=== PATIENT | male | born 1975 | race African-American/Black ===

== ENCOUNTER 2021-05-29 16:16 | Emergency (ER) | payer OTHER ==
[~2021-05-29] VITALS: Ht 180.3 cm; Wt 78.0 kg
[2021-05-29] MEDS ORDERED: INSULIN REGULAR (HUMULIN R) 300UNITS/3ML VIAL IV ONE (16:30)
[2021-05-29] MEDS ORDERED: SODIUM CHLORIDE 0.9% 1,000 ML IV ONE (16:30)
[2021-05-29 17:11] LABS: HEMATOCRIT. 26.3 % (42.0-52.0); HEMOGLOBIN. 9.7 g/dL (14.0-18.0); MEAN CORPUSCULAR HEMOGLOBIN 32.9 pg (28.0-32.0); MEAN CORPUSCULAR VOLUME 89.5 fL (80.0-94.0); MEAN PLATELET VOLUME 9.2 fl (7.4-10.4); PLATELET 227 x1000/uL (130-400); RED BLOOD CELL COUNT 2.94 mill/uL (4.7-6.1); RED CELL DISTRIBUTION WIDTH 14.2 % (11.6-14.6)
[2021-05-29 17:17] LABS: CHLORIDE 101 mEq/L (98-107)
[2021-05-29 17:29] LABS: CLARITY URINE CLEAR (CLEAR); COLOR URINE YELLOW (YELLOW); KETONES URINE NEGATIVE (NEGATIVE); LEUKOCYTE ESTERASE URINE NEGATIVE (NEGATIVE); NITRITE URINE NEGATIVE (NEGATIVE); OCCULT BLOOD URINE NEGATIVE (NEGATIVE); PH URINE 6.5 (4.5-8.0); PROTEIN URINE NEGATIVE (NEGATIVE); SPECIFIC GRAVITY URINE 1.017 (1.005-1.030)
[2021-05-29 17:37] LABS: *AMPHETAMINES SCREEN URINE NEGATIVE (NEGATIVE)
[2021-05-29 17:38] LABS: *BARBITURATES SCREEN URINE NEGATIVE (NEGATIVE); *BENZODIAZEPINES SCREEN URINE NEGATIVE (NEGATIVE); *COCAINE SCREEN URINE NEGATIVE (NEGATIVE); METHADONE URINE SCREEN NEGATIVE (NEGATIVE); OPIATES URINE SCREEN NEGATIVE (NEGATIVE)
[2021-05-29 17:39] LABS: CANNABINOID URINE SCREEN NEGATIVE (NEGATIVE); PHENCYCLIDINE URINE SCREEN NEGATIVE (NEGATIVE)
[2021-05-29 17:57] LABS: PLATELET ESTIMATE NORMAL
[2021-05-29 18:30] VITALS: BP 145/96
== END 2021-05-29 19:12 ==
LOC: ER 16:16 → EDSEX 16:16 → ER 19:12
DX: E10.65 Type 1 diabetes mellitus with hyperglycemia (principal); R42 Dizziness and giddiness; Z79.4 Long term (current) use of insulin
CPT/HCPCS: 36415; 80048; 80305; 81003; 82962; 85025; 96361; 96374; 99283; J1815; J7030; J7040